=== PATIENT | male | born 1930 | race Caucasian/White ===

== ENCOUNTER 2016-05-10 13:01 | Inpatient (IN) | payer OTHER, MEDICARE ==
[2016-05-10] VITALS (9 sets, daily range): BP systolic 73–136; BP diastolic 51–82; PULSE 43–76; RESP 16–20; TEMP 95.4–97.3; O2SAT 98–100
[~2016-05-10] VITALS: Ht 167.6 cm; Wt 92.8 kg
[~2016-05-10 13:01] MED LIST: NORMOSOL R INJ 1,000 ML IV ONE
[2016-05-10] MEDS ORDERED: ceFAZolin 2 GM PREMIX 50 ML ONE (13:04)
[2016-05-10] MEDS ORDERED: DIPHTH/TETANUS/ACEL PERTUSSIS (BOOSTER) 0.5 ML VIAL/PFS IM ONE ×2 (13:05→13:32)
[2016-05-10] MEDS ORDERED: ETOMIDATE 20 MG/10 ML VIAL ONE ×2 (13:07→13:24)
[2016-05-10] MEDS ORDERED: PROPOFOL 1000 MG/100 ML INJ 100 ML ONE (13:08)
[2016-05-10] MEDS ORDERED: MANNITOL INJ 50 ML ONE (13:09)
[2016-05-10] MEDS ORDERED: MIDAZOLAM HCL 5 MG/ML VIAL (1 ML) ONE ×2 (13:19→13:31)
[2016-05-10 13:25] LABS: AUTOMATED NEUTROPHIL # 5.4 TH/MM3 (1.8-7.7); BASOPHIL # 0.1 TH/MM3 (0-0.2); BASOPHIL % 0.7 % (0.0-2.0); EOSINOPHIL # 0.2 TH/MM3 (0-0.4); EOSINOPHIL % 1.8 % (0.0-4.0); HEMATOCRIT 29.5 % (39.0-51.0); HEMO FLAGS DIFF FINAL; LYMPH % 27.1 % (9.0-44.0); LYMPHOCYTE # 2.3 TH/MM3 (1.0-4.8); MEAN CELL VOLUME 92.4 FL (80.0-100.0); MEAN CORPUSCULAR HEMOGLOBIN 31.3 PG (27.0-34.0); MEAN CORPUSCULAR HGB CONC 33.9 % (32.0-36.0); MONO % 8.4 % (0.0-8.0); PLATELET COUNT 167 TH/MM3 (150-450); RED BLOOD COUNT 3.19 MIL/MM3 (4.50-5.90); RED CELL DISTRIBUTION WIDTH 14.1 % (11.6-17.2); WHITE BLOOD COUNT 8.7 TH/MM3 (4.0-11.0)
[2016-05-10 13:27] LABS: I-STAT POTASSIUM 4.9 MMOL/L (3.5-4.9)
[2016-05-10] MEDS ORDERED: Post-op Orders (for Pharmacy) MISC XX ONE (13:30)
[2016-05-10] MEDS ORDERED: NALOXONE HCL 0.4 MG/ML AMP IV PRN (13:30)
[2016-05-10] MEDS ORDERED: SODIUM CHLORIDE 0.9% FLUSH 10 ML FLUSH IV FLUSH PRN ×2 (13:30→14:30)
[2016-05-10] MEDS ORDERED: ONDANSETRON HCL 4 MG/2 ML VIAL IV PRN ×2 (13:30→14:30)
[2016-05-10] MEDS ORDERED: ROCURONIUM INJ 50 MG/5 ML VIAL ONE (13:31)
[2016-05-10] MEDS ORDERED: ceFAZolin 2 GM PREMIX 50 ML IV STA (13:32)
[2016-05-10 13:37] LABS: APTT (PATIENT) 29.8 SEC (24.3-30.1); INTERNATIONAL NORMALIZED RATIO 1.2 RATIO; PROTHROMBIN TIME - PATIENT 13.7 SEC (9.8-11.6)
[2016-05-10] MEDS ORDERED: NOREPINEPHRINE 4 MG/4 ML AMP ONE (13:40)
[2016-05-10] MEDS ORDERED: PROPOFOL 1000 MG/100 ML IV SCH (13:45)
[2016-05-10] MEDS ORDERED: SUCCINYLCHOLINE CHLORIDE 200 MG/10 ML VIAL IV ONE (13:45)
[2016-05-10] MEDS ORDERED: NOREPINEPHRINE-DEXTROSE DRIP 250 ML IV SCH (13:45)
[2016-05-10] MEDS ORDERED: TERBUTALINE INJ 1 MG/ML AMP SQ PRN ×2 (13:45→14:15)
[2016-05-10] MEDS ORDERED: ETOMIDATE 20 MG/10 ML VIAL IV PUSH ONE (13:45)
[2016-05-10] MEDS ORDERED: [UNRECOGNIZED DRUG - OTHER] IV ONE (13:45)
[2016-05-10] MEDS ORDERED: MANNITOL 12.5 GM/50 ML IV ONE (13:45)
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
[2016-05-10] MEDS ORDERED: MAGNESIUM SULFATE INJ 2 GM in SODIUM CHLORIDE 0.9% INJ 96 ML IV PRN (14:15)
[2016-05-10] MEDS ORDERED: MAGNESIUM OXIDE 400 MG TAB PO PRN (14:15)
[2016-05-10] MEDS ORDERED: POTASSIUM CHLOR 40 MEQ PREMIX 100 ML IV PRN ×2 (14:15)
[2016-05-10] MEDS ORDERED: POTASSIUM PHOSPHATE INJ 30 MMOL in SODIUM CHLOR 0.9% 250 ML INJ 250 ML IV PRN (14:15)
[2016-05-10] MEDS ORDERED: RESP: ALBUTEROL 2.5 MG/IPRATROPIUM 0.5 MG NEB (PRN) INH (14:15)
[2016-05-10] MEDS ORDERED: SODIUM CHLORIDE 0.9% FLUSH 5 ML FLUSH IV FLUSH PRN (14:15)
[2016-05-10] MEDS ORDERED: MAGNESIUM SULFATE INJ 4 GM in SODIUM CHLORIDE 0.9% INJ 92 ML IV PRN (14:15)
[2016-05-10] MEDS ORDERED: POTASSIUM PHOSPHATE MONOBASIC 500 MG TAB PO/TUBE PRN (14:15)
[2016-05-10] MEDS ORDERED: SODIUM PHOSPHATE INJ 30 MMOL in SODIUM CHLOR 0.9% 250 ML INJ 240 ML IV PRN (14:15)
[2016-05-10] MEDS ORDERED: POTASSIUM PHOSPHATE MONOBASIC 500 MG TAB PO PRN (14:15)
[2016-05-10] MEDS ORDERED: POTASSIUM CHLOR 20 MEQ PREMIX 100 ML IV PRN ×2 (14:15)
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
[2016-05-10] MEDS ORDERED: IOHEXOL 350 MG/ML 10 ML VIAL (for RAD DIAG) IV ONE (14:22)
[2016-05-10] MEDS ORDERED: CHLORHEXIDINE GLUCONATE 2 % 1 PACK (2 CLOTHS) TOP PRN (14:30)
[2016-05-10] MEDS ORDERED: ACETAMINOPHEN 325 MG TAB PO PRN (14:30)
[2016-05-10] MEDS ORDERED: RESP: ALBUTEROL 2.5 MG/3 ML NEB (PRN) INH (14:30)
[2016-05-10] MEDS ORDERED: DEXTROSE 50% IN WATER 50 ML VIAL(D50) IV PUSH PRN (14:30)
[2016-05-10] MEDS ORDERED: GLUCAGON 1 MG/ML VIAL OTHER PRN (14:30)
[2016-05-10] MEDS ORDERED: SENNOSIDES SYRUP 8.8 MG/5 ML CUP G-TUBE PRN (14:30)
[2016-05-10] MEDS ORDERED: MISCELLANEOUS NURSING INFORMATION XX SCH (14:30)
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
[2016-05-10 14:49] LABS: BLOOD GAS CARBOXYHEMOGLOBIN 1.4 % (0-4); BLOOD GAS HCO3 20 mmol/L (22-26); BLOOD GAS METHEMOGLOBIN 0.9 % (0-2); BLOOD GAS O2 HGB SATURATION 98 % (90-100); BLOOD GAS PCO2 32 mmHg (38-42); BLOOD GAS PO2 226 mmHg (61-120); BLOOD GAS TOTAL HGB 8.4 G/DL (12.0-16.0); TEMP CORR TO 98.6
[2016-05-10 14:50] LABS: CRITICAL VALUE NO; OXYGEN DEVICE VENTILATOR
[2016-05-10 14:51] LABS: DRAW SITE RT RADIAL; FIO2 50 %; NUMBER OF ARTERIAL PUNCTURES 1; STAT NO; ULNAR PULSE PRESENT
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
[2016-05-10] MEDS: DOCUSATE SODIUM 100 MG/10 ML UDC G-TUBE SCH (15:00)
[2016-05-10] MEDS: fentaNYL DRIP 250 ML IV SCH (15:04)
[2016-05-10] MEDS: SODIUM CHLOR 0.9% 1000 ML INJ 1,000 ML IV SCH (15:08)
[2016-05-10] MEDS ORDERED: levETIRAcetam INJ 500 MG in SODIUM CHLORIDE 0.9% INJ 100 ML IV ONE (15:15)
[2016-05-10] MEDS ORDERED: BUPIVACAINE/EPINEPHRINE 0.5% PF 30 ML VIAL ONE (15:20)
[2016-05-10] MEDS ORDERED: THROMBIN (TOPICAL) 5,000 UNIT VIAL ONE (15:20)
[2016-05-10] MEDS ORDERED: GELFOAM SIZE 100 ONE ×2 (15:20→16:51)
[2016-05-10] MEDS ORDERED: GENTAMICIN SULFATE 80 MG/2 ML VIAL ONE ×2 (15:20→16:03)
[2016-05-10] MEDS: PANTOPRAZOLE SODIUM 40 MG VIAL IV SCH (15:22)
[2016-05-10] MEDS ORDERED: BACITRACIN TOP OINT 15 GM TUBE ONE (15:23)
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
[2016-05-10] MEDS ORDERED: 3% SALINE INJ 500 ML IV SCH (15:45)
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
--- NOTE | 2016-05-10 15:59 | OTSOAPIP ---
RN REQUESTED TO HOLD JUST ADMITTED TO ROOM AND COMPLETING ADMISSION. Therapist: Marybeth Howard OTR/L Signature on file
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
[2016-05-10] MEDS: ARTIFICIAL TEARS OPTH SOLN 15 ML BTL EACH EYE SCH (17:49)
[2016-05-10] MEDS ORDERED: INSULIN NovoLIN REGULAR SUPPLEMENTAL SCALE SQ SCH (18:00)
[2016-05-10 18:57] LABS: BLOOD GAS BASE EXCESS -6.7 mmol/L (-2-2); BLOOD GAS CARBOXYHEMOGLOBIN 1.5 % (0-4); BLOOD GAS HCO3 18 mmol/L (22-26); BLOOD GAS METHEMOGLOBIN 0.9 % (0-2); BLOOD GAS O2 HGB SATURATION 97 % (90-100); BLOOD GAS OXYGEN CONTENT 13.5 Vol % (12.0-20.0); BLOOD GAS PCO2 33 mmHg (38-42); BLOOD GAS PO2 215 mmHg (61-120); BLOOD GAS TOTAL HGB 9.6 G/DL (12.0-16.0); CRITICAL VALUE NO; DRAW SITE ART LINE; FIO2 100 %; NUMBER OF ARTERIAL PUNCTURES 0; OXYGEN DEVICE VENTILATOR; STAT NO; TEMP CORR TO 98.6; ULNAR PULSE PRESENT; VENT SETTINGS 16/500/PEEP5
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
[2016-05-10] MEDS ORDERED: CHLORHEXIDINE 0.12% (ORAL KIT) 15 ML CUP MT SCH (20:00)
[2016-05-10] MEDS ORDERED: SODIUM CHLOR 0.9% 1000 ML INJ 1,000 ML IV ONE ×2 (20:00→21:30)
[2016-05-10 20:06] LABS: HEMATOCRIT 27.8 % (39.0-51.0); REVIEW FLAG FINAL
[2016-05-10] MEDS: NOREPINEPHRINE INJ 4 MG in SODIUM CHLOR 0.9% 250 ML INJ 246 ML IV SCH ×2 (20:12→20:15)
[2016-05-10 20:21] LABS: AUTOMATED NEUTROPHIL # 15.8 TH/MM3 (1.8-7.7); BASOPHIL # 0.1 TH/MM3 (0-0.2); BASOPHIL % 0.3 % (0.0-2.0); EOSINOPHIL % 0.3 % (0.0-4.0); HEMATOCRIT 27.6 % (39.0-51.0); HEMO FLAGS DIFF FINAL; LYMPH % 6.9 % (9.0-44.0); LYMPHOCYTE # 1.3 TH/MM3 (1.0-4.8); MEAN CELL VOLUME 89.8 FL (80.0-100.0); MEAN CORPUSCULAR HEMOGLOBIN 30.7 PG (27.0-34.0); MEAN CORPUSCULAR HGB CONC 34.2 % (32.0-36.0); MONO % 11.1 % (0.0-8.0); NEUT % 81.4 % (16.0-70.0); PLATELET COUNT 102 TH/MM3 (150-450); RED BLOOD COUNT 3.08 MIL/MM3 (4.50-5.90); RED CELL DISTRIBUTION WIDTH 14.3 % (11.6-17.2); WHITE BLOOD COUNT 19.4 TH/MM3 (4.0-11.0)
[2016-05-10] MEDS: levETIRAcetam INJ 500 MG in SODIUM CHLORIDE 0.9% INJ 100 ML IV SCH (20:41)
[2016-05-10] MEDS ORDERED: SODIUM CHLORIDE 0.9% FLUSH 5 ML FLUSH IV FLUSH SCH (21:00)
[2016-05-10] MEDS ORDERED: SODIUM CHLORIDE 0.9% FLUSH 10 ML FLUSH IV FLUSH SCH (21:00)
[2016-05-10 21:07] LABS: BICARBONATE 18.9 MEQ/L (21.0-32.0); POTASSIUM 4.1 MEQ/L (3.5-5.1)
[2016-05-10 21:23] LABS: CALCIUM-PROTEIN CORRECTED 7.5 MG/DL (8.5-10.1)
[2016-05-10] MEDS ORDERED: CALCIUM GLUCONATE INJ 2 GM in SODIUM CHLORIDE 0.9% INJ 100 ML IV ONE (21:30)
[2016-05-10 21:48] LABS: ALKALINE PHOSPHATASE 53 U/L (45-117); ALT (GPT) 18 U/L (12-78); ANION GAP 12 MEQ/L (5-15); AST (GOT) 43 U/L (15-37); BLOOD UREA NITROGEN 19 MG/DL (7-18); CALCIUM-PROTEIN CORRECTED 7.9 MG/DL (8.5-10.1); CHLORIDE 109 MEQ/L (98-107); CREATINE KINASE 166 U/L (39-308); GLOMERULAR FILTRATION RATE 58 ML/MIN (>89); SODIUM (NA) 141 MEQ/L (136-145); TOTAL BILIRUBIN ADULT 0.8 MG/DL (0.2-1.0)
[2016-05-10 21:49] LABS: POTASSIUM 4.5 MEQ/L (3.5-5.1)
[2016-05-10 21:57] LABS: MAGNESIUM 1.8 MG/DL (1.5-2.5)
[2016-05-10] MEDS ORDERED: MANNITOL 12.5 GM/50 ML VIAL IV ONE ×2 (22:00→23:30)
[2016-05-10] MEDS ORDERED: SODIUM CHLORIDE 23.4% INJ 240 MEQ in SYRINGE/BAG 1 EA IV ONE (22:00)
[2016-05-10] MEDS: LATANOPROST 0.005% OPHT SOLN 2.5 ML BTL EACH EYE SCH (22:00)
[2016-05-10] MEDS: RESP: ALBUTEROL 2.5 MG/IPRATROPIUM 0.5 MG NEB (SCH) INH (22:00)
[2016-05-10] MEDS: PROPOFOL 1000 MG/100 ML INJ 100 ML IV SCH (22:02)
[2016-05-10] MEDS ORDERED: MAGNESIUM SULFATE 1 GM PREMIX 100 ML ONE (22:13)
[2016-05-10] MEDS ORDERED: MAGNESIUM SULFATE 2 GM/NS 100 ML IV ONE ×2 (22:30)
[2016-05-10] MEDS ORDERED: EPINEPHrine (1:1000) INJ 2 MG in SODIUM CHLOR 0.9% 250 ML INJ 248 ML IV SCH (23:00)
[2016-05-10] MEDS ORDERED: CISATRACURIUM BESYLATE 20 MG/10 ML VIAL IVP ONE (23:30)
[2016-05-10 23:46] LABS: BLOOD GAS CARBOXYHEMOGLOBIN 1.5 % (0-4); BLOOD GAS HCO3 16 mmol/L (22-26); BLOOD GAS O2 HGB SATURATION 97 % (90-100); BLOOD GAS OXYGEN CONTENT 11.4 Vol % (12.0-20.0); BLOOD GAS PCO2 30 mmHg (38-42); BLOOD GAS PO2 231 mmHg (61-120); BLOOD GAS TOTAL HGB 7.9 G/DL (12.0-16.0); TEMP CORR TO 98.6
[2016-05-10 23:47] LABS: CRITICAL VALUE YES; OXYGEN DEVICE VENTILATOR
[2016-05-10 23:48] LABS: DRAW SITE ART LINE; FIO2 50 %; STAT NO; VENT SETTINGS PRVC
[2016-05-10] MEDS: CISATRACURIUM INJ 100 MG in SODIUM CHLOR 0.9% 250 ML INJ 240 ML IV SCH (23:51)
[2016-05-10 23:53] LABS: HEMATOCRIT 23.5 % (39.0-51.0)
[2016-05-11] VITALS (20 sets, daily range): BP systolic 90–154; BP diastolic 61–93; PULSE 67–152; RESP 18; TEMP 90.7–97.2; O2SAT 93–100
[2016-05-11] MEDS: fentaNYL DRIP 250 ML IV SCH ×4 (00:04→16:39)
[2016-05-11 00:10] LABS: REVIEW FLAG FINAL
[2016-05-11] MEDS: PROPOFOL 1000 MG/100 ML INJ 100 ML IV SCH ×8 (01:10→22:29)
[2016-05-11] MEDS: SODIUM CHLOR 0.9% 1000 ML INJ 1,000 ML IV SCH ×3 (02:01→20:13)
[2016-05-11] MEDS: INSULIN NovoLIN REGULAR SUPPLEMENTAL SCALE SQ SCH ×7 (02:20→23:44)
[2016-05-11] MEDS: NOREPINEPHRINE INJ 4 MG in SODIUM CHLOR 0.9% 250 ML INJ 246 ML IV SCH ×7 (02:41→16:38)
[2016-05-11] MEDS: MIDAZOLAM 100 MG/ML INJ 100 ML IV SCH ×3 (02:43→19:32)
[2016-05-11] MEDS ORDERED: SODIUM CHLORIDE 23.4% INJ 240 MEQ in SYRINGE/BAG 1 EA IV ONE ×2 (03:00→05:45)
[2016-05-11] MEDS: DOCUSATE SODIUM 100 MG/10 ML UDC G-TUBE SCH ×2 (03:00→13:29)
[2016-05-11] MEDS: VASOPRESSIN INJ 40 UNITS in DEXTROSE 5% IN WATER 100ML INJ 98 ML IV SCH ×2 (03:28)
--- NOTE | 2016-05-11 04:12 | RADRPT ---
EXAM DATE/TIME: 05/11/2016 03:33 [facility] COMPARISON: CT BRAIN W/O CONTRAST, May 10, 2016, 13:27. INDICATIONS : Decline in status. RADIATION DOSE: 56.35 CTDIvol (mGy) MEDICAL HISTORY : Non-responsive. SURGICAL HISTORY : Non-responsive. ENCOUNTER: Subsequent ACUITY: 1 day PAIN SCALE: Non-responsive LOCATION: cranial TECHNIQUE: Multiple contiguous axial images were obtained of the head. Using automated exposure control and adj ustment of the mA and/or kV according to patient size, radiation dose was kept as low as reasonably a chievable to obtain optimal diagnostic quality images. FINDINGS: There has been interval surgery with scalp apolinar present bilaterally. There are screws traversing t he fracture lines of the left parietal bone fracture and right frontal bone fracture. A surgical drai n is in place on the right along the extra-axial space in the frontal region. There is scalp soft tis lynn swelling and there is extra-axial air. There is only a small amount of right sided subdural blood products remaining. There are persistent blood products along the left frontal and temporal region s ulci. There is new and increased intra-axial blood products within the right temporal lobe and in the left frontal lobe. There is approximately 5 mm of [id number] midline shift, stable from the prior study. Ventricles have increased in size and blood products layer along the left occipital horn. The re is effacement of the perimesencephalic cisterns. CONCLUSION: 1. Interval surgery with right extra-axial drain placement and evacuation of the right subdural hemat hilton. 2. However, there is new and increased intra-axial acute blood products within the right temporal lob e and the left frontal lobe. 3. There is new effacement of the perimesencephalic cistern suspicious for downward transtentorial he rniation. 4. Ventricles have slightly increased in size and there is a small amount of blood products in the le ft occipital horn. There is stable 5 mm of [id number] midline shift. Tyrel Cline MD on May 11, 2016 at 4:04 Board Certified Radiologist. This report was verified electronically.
[2016-05-11] MEDS: RESP: ALBUTEROL 2.5 MG/IPRATROPIUM 0.5 MG NEB (SCH) INH ×5 (04:37→20:42)
--- NOTE | 2016-05-11 05:08 | RADRPT ---
EXAM DATE/TIME: 05/11/2016 04:01 [facility] COMPARISON: CHEST SINGLE AP, May 10, 2016, 14:17. INDICATIONS : Shortness of breath. MEDICAL HISTORY : Unobtainable. SURGICAL HISTORY : Unobtainable. ENCOUNTER: Subsequent ACUITY: 2 days PAIN SCORE: Non-responsive. LOCATION: Bilateral chest FINDINGS: Portable AP view of the chest demonstrates a normal-sized cardiac silhouette. ETT and left subclavian central line remain present. Patient is post median sternotomy with the superior most sternotomy wir e being fractured. There is airspace opacity at the left lung base, slightly increased from the prior study. No pneumothorax is visualized. CONCLUSION: The left lung base air space consolidation has slightly increased. Tyrel Cline MD on May 11, 2016 at 5:05 Board Certified Radiologist. This report was verified electronically.
[2016-05-11 05:11] LABS: AUTOMATED NEUTROPHIL # 7.6 TH/MM3 (1.8-7.7); BASOPHIL % 0.2 % (0.0-2.0); EOSINOPHIL % 0.4 % (0.0-4.0); LYMPH % 13.4 % (9.0-44.0); LYMPHOCYTE # 1.4 TH/MM3 (1.0-4.8); MEAN CELL VOLUME 89.2 FL (80.0-100.0); MEAN CORPUSCULAR HEMOGLOBIN 31.8 PG (27.0-34.0); MEAN CORPUSCULAR HGB CONC 35.7 % (32.0-36.0); MONO % 13.2 % (0.0-8.0); NEUT % 72.8 % (16.0-70.0); PLATELET COUNT 67 TH/MM3 (150-450); RED BLOOD COUNT 2.29 MIL/MM3 (4.50-5.90); RED CELL DISTRIBUTION WIDTH 14.9 % (11.6-17.2); WHITE BLOOD COUNT 10.5 TH/MM3 (4.0-11.0)
[2016-05-11] MEDS: CHLORHEXIDINE GLUCONATE 2 % 1 PACK (2 CLOTHS) TOP SCH (05:16)
[2016-05-11 05:19] LABS: APTT (PATIENT) 30.8 SEC (24.3-30.1); INTERNATIONAL NORMALIZED RATIO 1.1 RATIO; PROTHROMBIN TIME - PATIENT 12.7 SEC (9.8-11.6)
[2016-05-11 05:21] LABS: HEMATOCRIT 20.4 % (39.0-51.0); HEMO FLAGS AUTO DIFF
[2016-05-11] MEDS ORDERED: SODIUM CHLOR 0.9% 250 ML INJ 250 ML IV ONE (05:30)
[2016-05-11 05:33] LABS: BICARBONATE 16.1 MEQ/L (21.0-32.0); INDIRECT BILIRUBIN 0.4 MG/DL (0.0-0.8); MAGNESIUM 2.4 MG/DL (1.5-2.5); POTASSIUM 4.6 MEQ/L (3.5-5.1); TOTAL BILIRUBIN ADULT 0.6 MG/DL (0.2-1.0)
[2016-05-11] MEDS: LEVOTHYROXINE SODIUM 50 MCG TAB PO SCH ×2 (06:00→09:01)
[2016-05-11 06:17] LABS: BLOOD GAS BASE EXCESS -11.4 mmol/L (-2-2); BLOOD GAS CARBOXYHEMOGLOBIN 1.3 % (0-4); BLOOD GAS HCO3 14 mmol/L (22-26); BLOOD GAS METHEMOGLOBIN 0.8 % (0-2); BLOOD GAS O2 HGB SATURATION 97 % (90-100); BLOOD GAS OXYGEN CONTENT 9.8 Vol % (12.0-20.0); BLOOD GAS PCO2 29 mmHg (38-42); BLOOD GAS PO2 150 mmHg (61-120); TEMP CORR TO 98.6
[2016-05-11 06:18] LABS: CRITICAL VALUE YES; OXYGEN DEVICE VENTILATOR; VENT SETTINGS PRVC
[2016-05-11 06:19] LABS: DRAW SITE ART LINE; FIO2 40 %; STAT NO
[2016-05-11] MEDS: CISATRACURIUM INJ 100 MG in SODIUM CHLOR 0.9% 250 ML INJ 240 ML IV SCH ×5 (06:21→19:56)
[2016-05-11] MEDS ORDERED: SODIUM BICARBONATE 8.4% INJ 50 MEQ/50 ML SYR IV PUSH ONE (06:45)
[2016-05-11] MEDS ORDERED: TERBUTALINE INJ 1 MG/ML AMP SQ PRN ×3 (06:45→15:45)
[2016-05-11] MEDS ORDERED: PHENYLEPHRINE INJ 160 MG in DEXTROSE 5% IN WATE 500 ML INJ 484 ML IV SCH ×2 (06:45)
[2016-05-11] MEDS ORDERED: PHENYLEPHRINE INJ 160 MG in SODIUM CHLORID 0.9% 500 ML INJ 484 ML IV SCH (07:00)
[2016-05-11 07:15] LABS: PLATELET ESTIMATE SMEAR LOW (NORMAL)
[2016-05-11 07:16] LABS: PLATELET MORPHOLOGY NORMAL (NORMAL); SCAN/DIFF AUTO DIFF CONFIRMED
[2016-05-11 07:24] LABS: CALCIUM-PROTEIN CORRECTED 8.3 MG/DL (8.5-10.1)
[2016-05-11] MEDS ORDERED: PENTOBARBITAL IV PUSH ONE (07:30)
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
[2016-05-11] MEDS: LACTULOSE SYRUP 20 GM/30 ML CUP PO SCH (09:00)
[2016-05-11] MEDS: CHLORHEXIDINE 0.12% (ORAL KIT) 15 ML CUP MT SCH ×2 (09:00→20:13)
[2016-05-11] MEDS: SODIUM CHLORIDE 0.9% FLUSH 10 ML FLUSH IV FLUSH SCH ×2 (09:00→22:23)
[2016-05-11] MEDS: ARTIFICIAL TEARS OPTH SOLN 15 ML BTL EACH EYE SCH ×3 (09:01→16:39)
[2016-05-11] MEDS: TIMOLOL MALEATE 0.5% OPHT SOLN 5 ML BTL LEFT EYE SCH ×2 (09:01→22:23)
[2016-05-11] MEDS: BACITRACIN TOP OINT 15 GM TUBE TOPICAL SCH ×2 (09:01→22:23)
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
[2016-05-11] MEDS: levETIRAcetam INJ 500 MG in SODIUM CHLORIDE 0.9% INJ 100 ML IV SCH ×2 (09:32→22:25)
--- NOTE | 2016-05-11 11:10 | RADRPT ---
EXAM DATE/TIME: 05/11/2016 10:45 [place] COMPARISON: CHEST SINGLE AP, May 11, 2016, 4:01. INDICATIONS : Evaluate for respiratory failure. MEDICAL HISTORY : Unobtainable SURGICAL HISTORY : Unobtainable ENCOUNTER: Subsequent ACUITY: 2 days PAIN SCORE: 0/10 LOCATION: Chest FINDINGS: ET tube and central venous catheter are in good position. Right lung is clear. Increasing consolida tive changes are seen on the left without pneumothorax. Heart remains enlarged. Sternal wires are n oted. CONCLUSION: Increasing consolidative changes on the left without pneumothorax. Brenden Polanco MD FACR on May 11, 2016 at 11:07 Board Certified Radiologist. This report was verified electronically.
--- NOTE | 2016-05-11 11:43 | PD.ORT.PN ---
Subjective Subjective Remarks Patient is intubated and sedated Objective Vitals Vital Signs Date Time Temp Pulse Resp B/P Pulse Ox O2 Delivery O2 Flow Rate FiO2 05/11/16 10:00 71 05/11/16 08:50 90.7 77 18 154/93 97 05/11/16 08:35 90.7 79 18 124/70 95 05/11/16 08:00 80 05/11/16 08:00 90.7 80 18 121/78 96 05/11/16 08:00 40 05/11/16 06:00 94 05/11/16 04:42 98 40 05/11/16 04:00 92.1 96 18 100 114/84 05/11/16 04:00 96 05/11/16 04:00 40 05/11/16 03:20 100 100 05/11/16 02:00 82 05/11/16 00:00 67 05/11/16 00:00 50 05/11/16 00:00 92.1 67 18 100 90/61 05/10/16 22:00 76 05/10/16 20:00 95.4 66 20 99 136/82 05/10/16 20:00 50 05/10/16 20:00 59 05/10/16 19:30 100 50 05/10/16 18:45 74 05/10/16 15:00 100 100 05/10/16 14:45 97.3 53 18 121/70 100 05/10/16 14:06 98 50 05/10/16 14:00 97.0 43 16 73/51 100 05/10/16 14:00 50 05/10/16 14:00 44 05/10/16 13:35 98 100 I/O 05/10/16 05/10/16 05/10/16 05/11/16 05/11/16 05/11/16 07:00 15:00 23:00 07:00 15:00 23:00 Intake Total 5332 ml 4106 ml Output Total 500 ml 595 ml Balance 4832 ml 3511 ml Intake IV Total 4854 ml 3065 ml Packed Cells 250 ml 750 ml Platelets 291 ml Cryoprecipitate 228 ml Output Urine Total 425 ml 575 ml Drainage Total 75 ml 20 ml Result Diagram: 05/11/16 0440 05/11/16 0440 Other Results Laboratory Tests Test 05/10/16 05/11/16 13:07 04:40 Prothrombin Time 13.7 SEC 12.7 SEC (9.8-11.6) (9.8-11.6) Prothromb Time International 1.2 RATIO 1.1 RATIO Ratio Imaging Last 24 hours Impressions Chest X-Ray 05/11/16 0600 Signed Impressions: Service Date/Time: Wednesday, May 11, 2016 04:01 - CONCLUSION: The left lung base air space consolidation has slightly increased. Tyrel Cline MD Head CT 05/11/16 0000 Signed Impressions: Service Date/Time: Wednesday, May 11, 2016 03:33 - CONCLUSION: 1. Interval surgery with right extra-axial drain placement and evacuation of the right subdural hematoma. 2. However, there is new and increased intra-axial acute blood products within the right temporal lobe and the left frontal lobe. 3. There is new effacement of the perimesencephalic cistern suspicious for downward transtentorial herniation. 4. Ventricles have slightly increased in size and there is a small amount of blood products in the left occipital horn. There is stable 5 mm of [id number] midline shift. Tyrel Cline MD Thoracic Spine CT 05/10/161315 Signed Impressions: Service Date/Time: Tuesday, May 10, 2016 13:27 - CONCLUSION: There is no evidence of acute fracture. 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 There is no evidence of acute fracture. Gelacio Dumont MD Maxillofacial CT 05/10/161315 Signed Impressions: Service Date/Time: Tuesday, May 10, 2016 13:33 - CONCLUSION: Left zygomatic arch fracture without depression. Left orbital soft tissue swelling. Chronic paranasal sinus disease. Jesus Blanc Jr., MD Lumbar Spine CT 05/10/161315 Signed Impressions: Service Date/Time: Tuesday, May 10, 2016 13:27 - CONCLUSION: 1. Extensive degenerative change without fracture. 2. Mild spinal canal stenosis. 3. 5 cm infrarenal aortic aneurysm Gelacio Dumont MD Head CT 05/10/161315 Signed Impressions: Service Date/Time: Tuesday, May 10, 2016 13:27 - CONCLUSION: 1. 13 mm right subdural hematoma 2. Extensive traumatic subarachnoid hemorrhage. 3. Left basal ganglia contusion 4. Right temporal bone and left parietal fracture Gelacio Dumont MD Chest X-Ray 05/10/161315 Signed Impressions: Service Date/Time: Tuesday, May 10, 2016 12:56 - CONCLUSION: 1. Endotracheal tube within the right mainstem bronchus. This should be retracted 3-4 cm. 2. Left lower lobe atelectasis versus contusion 1. Gelacio Dumont MD Chest CT 05/10/161315 Signed Impressions: Service Date/Time: Tuesday, May 10, 2016 13:30 - CONCLUSION: 1. No evidence of acute thoracic abnormality. No masses are identified. 2. 7 cm aneurysm of the descending thoracic aorta Gelacio Dumont MD Cervical Spine CT 05/10/161315 Signed Impressions: Service Date/Time: Tuesday, May 10, 2016 13:30 - CONCLUSION: 1. Moderate degenerative changes as described above. There is no evidence of acute fracture. Gelacio Dumont MD Abdomen/Pelvis CT 05/10/161315 Signed Impressions: Service Date/Time: Tuesday, May 10, 2016 13:30 - CONCLUSION: 1. No acute abnormality. 2. Diffuse aneurysmal change of the aorta and inflow vessels. Infrarenal aorta measures 5.7 x 4.8 cm, right common iliac artery 3.1 cm, and left common iliac artery 2.0 cm. Jesus Blanc Jr., MD Objective Remarks The left lower extremity is splinted. There is brisk capillary refill of all the toes. The swelling is moderate. Compartments are compressible. There is no drainage on the splint. Assessment & Plan Assessment and Plan Left closed tibia shaft fracture. This patient is still in critical condition from his head injury. I discussed the case with the neurosurgeon today. This patient is not cleared for surgical management. It is still unsure whether this patient would be able to move forward with surgical management in the future. We will continue to monitor. Vic Lerner MD May 11, 2016 11:43
[2016-05-11] MEDS: PANTOPRAZOLE SODIUM 40 MG VIAL IV SCH (13:12)
[2016-05-11 13:46] LABS: HEMATOCRIT 22.7 % (39.0-51.0); MEAN CELL VOLUME 87.2 FL (80.0-100.0); MEAN CORPUSCULAR HEMOGLOBIN 31.1 PG (27.0-34.0); MEAN CORPUSCULAR HGB CONC 35.7 % (32.0-36.0); PLATELET COUNT 87 TH/MM3 (150-450); RED CELL DISTRIBUTION WIDTH 14.9 % (11.6-17.2); WHITE BLOOD COUNT 10.1 TH/MM3 (4.0-11.0)
[2016-05-11 13:49] LABS: REVIEW FLAG FINAL
[2016-05-11 14:10] LABS: APTT (PATIENT) 32.6 SEC (24.3-30.1); INTERNATIONAL NORMALIZED RATIO 1.2 RATIO; PROTHROMBIN TIME - PATIENT 12.8 SEC (9.8-11.6)
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
--- NOTE | 2016-05-11 15:21 | OTSOAPIP ---
TIME SESSION COMPLETED: AM TREATMENT TIME: 0 MINS. CHART REVIEWED. RECEIVED ORDERS FOR OT CONSULT FROM NAIT GEE. ELECTRONIC MEDICAL RECORD REVIEWED. PT NOT STABLE AND ON HOLD AT THIS TIME. AC. Therapist: KINJAL WILLIAM OT/L Signature on file
[2016-05-11] MEDS ORDERED: NOREPINEPHRINE INJ 4 MG in SODIUM CHLOR 0.9% 250 ML INJ 246 ML IV SCH (15:45)
[2016-05-11] MEDS ORDERED: NOREPINEPHRINE-DEXTROSE DRIP 250 ML IV SCH (15:45)
[2016-05-11] MEDS: NOREPINEPHRINE 16 MG/D5W 250 ML IV SCH ×6 (17:25→22:28)
[2016-05-11] MEDS: PHENYLEPHRINE INJ 160 MG in DEXTROSE 5% IN WATE 500 ML INJ 484 ML IV SCH ×2 (19:55)
[2016-05-11] MEDS: LATANOPROST 0.005% OPHT SOLN 2.5 ML BTL EACH EYE SCH (22:23)
[2016-05-12] VITALS (11 sets, daily range): BP systolic 73–133; BP diastolic 52–82; PULSE 103–147; RESP 16–18; TEMP 97.3–98.6; O2SAT 92–94
[2016-05-12] MEDS: NOREPINEPHRINE 16 MG/D5W 250 ML IV SCH ×8 (00:25→12:44)
[2016-05-12] MEDS: CISATRACURIUM INJ 100 MG in SODIUM CHLOR 0.9% 250 ML INJ 240 ML IV SCH (00:25)
[2016-05-12] MEDS: VASOPRESSIN INJ 40 UNITS in DEXTROSE 5% IN WATER 100ML INJ 98 ML IV SCH ×2 (01:15)
[2016-05-12] MEDS: PROPOFOL 1000 MG/100 ML INJ 100 ML IV SCH ×3 (01:40→10:37)
[2016-05-12] MEDS: fentaNYL DRIP 250 ML IV SCH ×2 (01:40→07:30)
[2016-05-12] MEDS: MIDAZOLAM 100 MG/ML INJ 100 ML IV SCH (01:40)
[2016-05-12] MEDS: DOCUSATE SODIUM 100 MG/10 ML UDC G-TUBE SCH (03:00)
[2016-05-12] MEDS: RESP: ALBUTEROL 2.5 MG/IPRATROPIUM 0.5 MG NEB (SCH) INH ×3 (04:00→08:09)
[2016-05-12 04:24] LABS: BASOPHIL % 0.2 % (0.0-2.0); EOSINOPHIL # 0.1 TH/MM3 (0-0.4); EOSINOPHIL % 0.4 % (0.0-4.0); HEMATOCRIT 21.7 % (39.0-51.0); LYMPH % 3.3 % (9.0-44.0); LYMPHOCYTE # 0.5 TH/MM3 (1.0-4.8); MEAN CELL VOLUME 89.3 FL (80.0-100.0); MEAN CORPUSCULAR HEMOGLOBIN 29.9 PG (27.0-34.0); MEAN CORPUSCULAR HGB CONC 33.4 % (32.0-36.0); MONO % 12.5 % (0.0-8.0); NEUT % 83.6 % (16.0-70.0); PLATELET COUNT 66 TH/MM3 (150-450); RED BLOOD COUNT 2.43 MIL/MM3 (4.50-5.90); RED CELL DISTRIBUTION WIDTH 15.4 % (11.6-17.2); WHITE BLOOD COUNT 14.4 TH/MM3 (4.0-11.0)
[2016-05-12 04:27] LABS: HEMO FLAGS AUTO DIFF
[2016-05-12 04:38] LABS: APTT (PATIENT) 35.9 SEC (24.3-30.1); INTERNATIONAL NORMALIZED RATIO 1.2 RATIO; PROTHROMBIN TIME - PATIENT 13.4 SEC (9.8-11.6)
[2016-05-12 04:39] LABS: BICARBONATE 13.8 MEQ/L (21.0-32.0); CALCIUM-PROTEIN CORRECTED 7.8 MG/DL (8.5-10.1); POTASSIUM 4.2 MEQ/L (3.5-5.1); TOTAL BILIRUBIN ADULT 0.5 MG/DL (0.2-1.0)
[2016-05-12] MEDS: PHENYLEPHRINE INJ 160 MG in DEXTROSE 5% IN WATE 500 ML INJ 484 ML IV SCH ×4 (04:49→12:44)
[2016-05-12 04:55] LABS: BANDS 6 % (0-6); EOSINOPHILS 2 % (0-4); KERATOCYTES 1+ (NORMAL); NEUTROPHIL # MANUAL DIFF 13.4 TH/MM3 (1.8-7.7); OVALOCYTES 1+ (NORMAL); PLATELET ESTIMATE SMEAR LOW (NORMAL); PLATELET MORPHOLOGY NORMAL (NORMAL); POLYS (SEG NEUTROPHILS) 87 % (16-70); SCAN/DIFF FINAL DIFF MANUAL; WBC DIFF SAMPLE 100
[2016-05-12 04:56] LABS: BLOOD GAS BASE EXCESS -14.6 mmol/L (-2-2); BLOOD GAS CARBOXYHEMOGLOBIN 1.3 % (0-4); BLOOD GAS HCO3 11 mmol/L (22-26); BLOOD GAS METHEMOGLOBIN 1.3 % (0-2); BLOOD GAS O2 HGB SATURATION 93 % (90-100); BLOOD GAS OXYGEN CONTENT 9.4 Vol % (12.0-20.0); BLOOD GAS PO2 83 mmHg (61-120); CRITICAL VALUE YES; DRAW SITE ART LINE; FIO2 40 %; OXYGEN DEVICE VENTILATOR; TEMP CORR TO 98.6; VENT SETTINGS PRVC/AC
[2016-05-12 04:57] LABS: BLOOD GAS PCO2 26 mmHg (38-42); STAT NO
[2016-05-12] MEDS: CHLORHEXIDINE GLUCONATE 2 % 1 PACK (2 CLOTHS) TOP SCH (05:11)
[2016-05-12] MEDS: INSULIN NovoLIN REGULAR SUPPLEMENTAL SCALE SQ SCH ×3 (05:11→12:00)
[2016-05-12] MEDS ORDERED: SODIUM BICARBONATE 8.4% SOLN 50 MEQ/50 ML VIAL IV SCH (05:15)
[2016-05-12] MEDS: SODIUM CHLOR 0.9% 1000 ML INJ 1,000 ML IV SCH (06:42)
[2016-05-12] MEDS: CHLORHEXIDINE 0.12% (ORAL KIT) 15 ML CUP MT SCH (08:00)
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
[2016-05-12] MEDS: ARTIFICIAL TEARS OPTH SOLN 15 ML BTL EACH EYE SCH (09:00)
[2016-05-12] MEDS: TIMOLOL MALEATE 0.5% OPHT SOLN 5 ML BTL LEFT EYE SCH (09:00)
[2016-05-12] MEDS: BACITRACIN TOP OINT 15 GM TUBE TOPICAL SCH (09:00)
[2016-05-12] MEDS: LACTULOSE SYRUP 20 GM/30 ML CUP PO SCH (09:00)
[2016-05-12] MEDS: SODIUM CHLORIDE 0.9% FLUSH 10 ML FLUSH IV FLUSH SCH (09:00)
[2016-05-12] MEDS: levETIRAcetam INJ 500 MG in SODIUM CHLORIDE 0.9% INJ 100 ML IV SCH (10:38)
--- NOTE | 2016-05-12 11:19 | PD.ORT.PN ---
Subjective Subjective Remarks Patient is intubated and sedated Objective Vitals Vital Signs Date Time Temp Pulse Resp B/P Pulse Ox O2 Delivery O2 Flow Rate FiO2 05/12/16 11:02 93 40 05/12/16 10:00 105 05/12/16 08:13 93 40 05/12/16 08:00 106 05/12/16 08:00 97.4 106 16 132/82 93 05/12/16 08:00 40 05/12/16 06:00 104 05/12/16 04:58 94 40 05/12/16 04:42 93 40 05/12/16 04:00 97.3 147 18 124/56 94 05/12/16 04:00 40 05/12/16 04:00 147 05/12/16 02:00 122 05/12/16 00:00 40 05/12/16 00:00 98.6 126 18 73/52 94 05/12/16 00:00 126 05/11/16 23:30 95 40 05/11/16 22:00 129 05/11/16 20:42 93 40 05/11/16 20:00 97.2 128 18 106/72 93 05/11/16 20:00 40 05/11/16 20:00 152 05/11/16 18:00 125 05/11/16 17:18 95 40 05/11/16 16:00 40 05/11/16 16:00 94.8 113 18 133/81 97 05/11/16 16:00 113 05/11/16 14:00 95 05/11/16 12:00 72 05/11/16 12:00 91.0 72 18 118/74 97 05/11/16 12:00 40 05/11/16 11:51 98 40 I/O 05/11/16 05/11/16 05/11/16 05/12/16 05/12/16 05/12/16 07:00 15:00 23:00 07:00 15:00 23:00 Intake Total 4106 ml 2904 ml 3925 ml 3442 ml Output Total 595 ml 1480 ml 470 ml 370 ml Balance 3511 ml 1424 ml 3455 ml 3072 ml Intake IV Total 3065 ml 2663 ml 3925 ml 3442 ml Packed Cells 750 ml Platelets 291 ml Cryoprecipitate 241 ml Output Urine Total 575 ml 1450 ml 450 ml 360 ml Drainage Total 20 ml 30 ml 20 ml 10 ml Result Diagram: 05/12/16 0345 05/12/16 0345 Other Results Laboratory Tests Test 05/11/16 05/12/16 13:24 03:45 Prothrombin Time 12.8 SEC 13.4 SEC (9.8-11.6) (9.8-11.6) Prothromb Time International 1.2 RATIO 1.2 RATIO Ratio Imaging Last 24 hours Impressions Chest X-Ray 05/11/16 0600 Signed Impressions: Service Date/Time: Wednesday, May 11, 2016 04:01 - CONCLUSION: The left lung base air space consolidation has slightly increased. Tyrel Cline MD Head CT 05/11/16 0000 Signed Impressions: Service Date/Time: Wednesday, May 11, 2016 03:33 - CONCLUSION: 1. Interval surgery with right extra-axial drain placement and evacuation of the right subdural hematoma. 2. However, there is new and increased intra-axial acute blood products within the right temporal lobe and the left frontal lobe. 3. There is new effacement of the perimesencephalic cistern suspicious for downward transtentorial herniation. 4. Ventricles have slightly increased in size and there is a small amount of blood products in the left occipital horn. There is stable 5 mm of [id number] midline shift. Tyrel Cline MD Thoracic Spine CT 05/10/161315 Signed Impressions: Service Date/Time: Tuesday, May 10, 2016 13:27 - CONCLUSION: There is no evidence of acute fracture. 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 There is no evidence of acute fracture. Gelacio Dumont MD Maxillofacial CT 05/10/161315 Signed Impressions: Service Date/Time: Tuesday, May 10, 2016 13:33 - CONCLUSION: Left zygomatic arch fracture without depression. Left orbital soft tissue swelling. Chronic paranasal sinus disease. Jesus Blanc Jr., MD Lumbar Spine CT 05/10/161315 Signed Impressions: Service Date/Time: Tuesday, May 10, 2016 13:27 - CONCLUSION: 1. Extensive degenerative change without fracture. 2. Mild spinal canal stenosis. 3. 5 cm infrarenal aortic aneurysm Gelacio Dumont MD Head CT 05/10/161315 Signed Impressions: Service Date/Time: Tuesday, May 10, 2016 13:27 - CONCLUSION: 1. 13 mm right subdural hematoma 2. Extensive traumatic subarachnoid hemorrhage. 3. Left basal ganglia contusion 4. Right temporal bone and left parietal fracture Gelacio Dumont MD Chest X-Ray 05/10/161315 Signed Impressions: Service Date/Time: Tuesday, May 10, 2016 12:56 - CONCLUSION: 1. Endotracheal tube within the right mainstem bronchus. This should be retracted 3-4 cm. 2. Left lower lobe atelectasis versus contusion 1. Gelacio Dumont MD Chest CT 05/10/161315 Signed Impressions: Service Date/Time: Tuesday, May 10, 2016 13:30 - CONCLUSION: 1. No evidence of acute thoracic abnormality. No masses are identified. 2. 7 cm aneurysm of the descending thoracic aorta Gelacio Dumont MD Cervical Spine CT 05/10/161315 Signed Impressions: Service Date/Time: Tuesday, May 10, 2016 13:30 - CONCLUSION: 1. Moderate degenerative changes as described above. There is no evidence of acute fracture. Gelacio Dumont MD Abdomen/Pelvis CT 05/10/161315 Signed Impressions: Service Date/Time: Tuesday, May 10, 2016 13:30 - CONCLUSION: 1. No acute abnormality. 2. Diffuse aneurysmal change of the aorta and inflow vessels. Infrarenal aorta measures 5.7 x 4.8 cm, right common iliac artery 3.1 cm, and left common iliac artery 2.0 cm. Jesus Blanc Jr., MD Objective Remarks The left lower extremity is splinted. There is brisk capillary refill of all the toes. The swelling is moderate. Compartments are compressible. There is no drainage on the splint. There is no change from yesterday's exam Assessment & Plan Assessment and Plan Left closed tibia shaft fracture. I discussed the case with the neurosurgeon. I was informed that the family has made decision to move forward with removal of critical care due to the severe nature of his head injury. Therefore, we will not be moving forward with surgical management for the left leg. Please reconsult as necessary. Vic Lerner MD May 12, 2016 11:19
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
[2016-05-12] MEDS ORDERED: LORazepam 2 MG/ML VIAL IV PRN (12:30)
[2016-05-12] MEDS ORDERED: MORPHINE SULFATE 4 MG/ML INJ IV PRN (13:00)
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
[2016-05-12] MEDS ORDERED: LORazepam 2 MG/ML VIAL IV SCH (16:00)
--- NOTE | 2016-05-12 21:36 | EKG ---
Date Performed: 05/10/2016 Time Performed: 14:13:16 PTAGE: 86 years EKG: Sinus bradycardia. Left axis deviation Inferior infarct - age undetermined Abnormal ECG NO PREVIOUS TRACING DOCTOR: Ryann Brady Interpretating Date/Time 05/12/2016 21:32:51
--- NOTE | 2016-05-14 13:43 | EC ---
Study Study Date:05/10/2016 STUDY CONCLUSIONS SUMMARY - Procedure narrative: Image quality was poor. The study was technically limited due to poor acoustic window availability. Extremely limited echo. - Left ventricle: The cavity size was normal. In limited views, the systolic function was probably normal. - Aortic valve: Trace regurgitation. If LV function is below 40, please consider prescribing an ACEI or ARB or document rationale for non-use. PROCEDURE DATA STUDY STATUS: Elective. Procedure: Transthoracic echocardiography. Image quality was poor. The study was technically limited due to poor acoustic window availability. Scanning was performed from the parasternal, apical, and subcostal acoustic windows. Study completion: The patient tolerated the procedure well. Transthoracic echocardiography. M-mode, complete 2D, complete spectral Doppler, and color Doppler. Patient status: Inpatient. CARDIAC ANATOMY LEFT VENTRICLE: The cavity size was normal. In limited views, the systolic function was probably normal. Images were inadequate for LV wall motion assessment. AORTIC VALVE: The valve appears to be grossly normal. Doppler: There was no stenosis. Trace regurgitation. Valve area: 1.97cm^2 (Vmax). Mean gradient: 5mm Hg (S). MITRAL VALVE: The valve appears to be grossly normal. Doppler: There was no evidence for stenosis. No significant regurgitation. Mean gradient: 1mm Hg (D). Peak gradient: 4mm Hg (D). PULMONIC VALVE: Not well visualized. TRICUSPID VALVE: The valve appears to be grossly normal. Doppler: There was no evidence for stenosis. Trace regurgitation. BASIC MEASUREMENTS ADULT Normal Left ventricle LV internal dimension, ED, chordal level, 50.7 mm 43-52 PLAX LV internal dimension, ES, chordal level, *41.1 mm 23-38 PLAX Fractional shortening, chordal level, PLAX *19 % >29 LV posterior wall thickness, ED 5.57 mm IVS/LVPW ratio, ED 1.23 <1.3 Ventricular septum Septal thickness, ED 6.84 mm Aortic valve Leaflet separation 17 mm 15-26 BASIC MEASUREMENTS ADULT Normal Aortic valve Leaflet separation 17 mm 15-26 Aorta Root diameter, ED 21 mm 20-37 Left atrium Anterior-posterior dimension, ES *41 mm 19-40 LA/aortic root ratio 1.95 DOPPLER MEASUREMENTS ADULT Normal Main pulmonary artery Pressure, S 22 mm Hg =30 Aortic valve Peak velocity, S 150 cm/s Mean velocity, S 108 cm/s VTI, S 39.8 cm Mean gradient, S 5 mm Hg Valve area, Vmax 1.97 cm^2 Regurgitant velocity, ED 314 cm/s Regurgitant deceleration 446 cm/s^2 Regurgitant pressure half-time 2057 ms Regurgitant gradient, ED 39 mm Hg Mitral valve Peak E-wave velocity 81.4 cm/s Peak A-wave velocity 62.7 cm/s Mean velocity, D 43.4 cm/s Deceleration time *246 ms 150-230 Mean gradient, D 1 mm Hg Peak gradient, D 4 mm Hg Peak E/A ratio 1.3 Tricuspid valve Regurgitant peak velocity 205 cm/s Peak RV-RA gradient, S 17 mm Hg Maximal regurgitant velocity 205 cm/s Systemic veins Estimated CVP 10 mm Hg Right ventricle RV pressure, S 27 mm Hg <30 Pulmonic valve Peak velocity, S 110 cm/s LEGEND: Mean values are shown as u=mean value. Asterisk (*) humphries values outside specified normal range. Prepared and signed by Milton Sprague [id number]
== END 2016-05-12 16:15 | disposition expired | DRG 955 ==
LOC: NEPI 13:01 → EDBD 13:38 → NEDA 13:38 → N03B 13:48
PROVIDERS: ADMIT Surgery; ATTEND Surgery
PROC: 0NS Head and Facial Bones, Reposition (ICD-10-PCS; 2016-05-10)
PROC: 4A103BD Monitoring of Intracranial Pressure, Percutaneous Approach (ICD-10-PCS; 2016-05-10)
PROC: 5A1945Z Respiratory Ventilation, 24-96 Consecutive Hours (ICD-10-PCS; 2016-05-10)
PROC: 0BH17EZ Insertion of Endotracheal Airway into Trachea, Via Natural or Artificial Opening (ICD-10-PCS; 2016-05-10)
PROC: 2W3MX1Z Immobilization of Left Lower Extremity using Splint (ICD-10-PCS; 2016-05-10)
PROC: 30233N1 Transfusion of Nonautologous Red Blood Cells into Peripheral Vein, Percutaneous Approach (ICD-10-PCS; 2016-05-10)
PROC: 00C40ZZ Extirpation of Matter from Intracranial Subdural Space, Open Approach (ICD-10-PCS; principal; 2016-05-10 15:40)
PROC: 30233R1 Transfusion of Nonautologous Platelets into Peripheral Vein, Percutaneous Approach (ICD-10-PCS; 2016-05-11)
DX: S06.5X9A Traumatic subdural hemorrhage with loss of consciousness of unspecified duration, initial encounter (principal); S27.321A Contusion of lung, unilateral, initial encounter; J96.00 Acute respiratory failure, unspecified whether with hypoxia or hypercapnia; R57.8 Other shock; E87.0 Hyperosmolality and hypernatremia; N17.9 Acute kidney failure, unspecified; I71.2 Thoracic aortic aneurysm, without rupture; D62 Acute posthemorrhagic anemia; S82.252A Displaced comminuted fracture of shaft of left tibia, initial encounter for closed fracture; S06.2X9A Diffuse traumatic brain injury with loss of consciousness of unspecified duration, initial encounter; S02.0XXA Fracture of vault of skull, initial encounter for closed fracture; D69.6 Thrombocytopenia, unspecified; I72.3 Aneurysm of iliac artery; I10 Essential (primary) hypertension; S02.40FA Zygomatic fracture, left side, initial encounter for closed fracture; E78.5 Hyperlipidemia, unspecified; I25.10 Atherosclerotic heart disease of native coronary artery without angina pectoris; S82.452A Displaced comminuted fracture of shaft of left fibula, initial encounter for closed fracture; M19.90 Unspecified osteoarthritis, unspecified site; E03.9 Hypothyroidism, unspecified; R40.2421 Glasgow coma scale score 9-12, in the field [EMT or ambulance]; G93.89 Other specified disorders of brain; E83.39 Other disorders of phosphorus metabolism; Z95.1 Presence of aortocoronary bypass graft; Z79.899 Other long term (current) drug therapy; V03.10XA Pedestrian on foot injured in collision with car, pick-up truck or van in traffic accident, initial encounter; Y93.01 Activity, walking, marching and hiking; Y92.481 Parking lot as the place of occurrence of the external cause
CPT/HCPCS: 31500; 36430; 36556; 36600; 70450; 70486; 71010; 71260; 72125; 72128; 72131; 72170; 73070; 73590; 73600; 74177; 80048; 80053; 80076; 80185; 82435; 82550; 82565; 82805; 82947; 82948; 83605; 83735; 83930; 84100; 84132; 84155; 84295; 84484; 84520; 85007; 85014; 85018; 85025; 85027; 85384; 85610; 85730; 86850; 86900; 86901; 86920; 86965; 90471; 90715; 93005; 93306; 94002; 94003; 94640; 94664; 94770; 96374; 96375; 99291; C1713; C9113; G0390; J0171; J0610; J0690; J1580; J1953; J2150; J2250; J2370; J2515; J3010; J3475; J7030; J7040; J7050; J7060; L0150; L0172; P9016; P9037; Q9967